=== PATIENT | male | born 1955 | race African-American/Black ===

== ENCOUNTER 2017-09-02 15:20 | Emergency (ER) | payer OTHER ==
[2017-09-02 15:27] VITALS: BP 165/98; PULSE 96; TEMP 97.7; BMI 21.2
--- NOTE | 2017-09-02 15:29 | PDOC ---
Rapid Medical Evaluation Time Seen by Provider: 09/02/17 15:23 Medical Evaluation: Allergies Allergy/AdvReac Type Severity Reaction Status Date / Time No Known Allergies Allergy Verified 09/02/17 15:23 09/02/17 15:23 The patient presents with a chief complaint of: Neck pain that radiates to the shoulders. Has chronic pain, that got worse starting on Wednesday. Saw his PCP yesterday (09/01/16) and was given Baclofen and gabapentin and ibuprofen. Took 1200mg of ibuprofen and excedrin as well as the prescribed medicine with little relief. I have performed a brief in-person evaluation of this patient; Pertinent physical exam findings: ambulatory, in no respiratory distress. Decreased ROM of neck with flexion. TTP L trapezius. Grossly neurologically intact I have ordered the following: Nothing The patient will proceed to the ED for further evaluation.
--- NOTE | 2017-09-02 16:14 | PDOC ---
History of Present Illness - General Chief Complaint: Head/Neck problem Stated Complaint: NECK/SHOULDER PAIN Time Seen by Provider: 09/02/17 15:23 History Source: Patient Exam Limitations: No Limitations - History of Present Illness Initial Comments: 09/02/17 16:21 c/o acute recurrance of neck pain. slept wrong 2 weeks ago and had another onset of pain to same left side of neck that has progressively worsened. Denies changes in exercise, activity, feel is the same type of pain he experienced some months ago after she "sleeping the wrong way on a bed pillow". An ice fever, earache or sore throat pain, no URI symptoms. Denies any recent exercise change, trauma,. Is disabled due to chronic migraine pain. has had chronic low back pain for many years Saw Dr Payne yesterday and prescribed Baclofen, Gabapentin, and Ibuprofen. AStates unabel to sleep last PM and hopes for differnet medication. 09/02/17 16:45 09/02/17 16:52 Occurred: reports: just prior to arrival Severity: reports: moderate, severe Pain Location: reports: none, back Method of Injury: Yes: unknown Modifying Factors: improves with: None Loss of Consciousness: no loss of consciousness Associated Symptoms (Fall): denies symptoms Past History - Travel Traveled outside of the country in the last 30 days: No Close contact w/someone who was outside of country & ill: No - Past Medical History Allergies/Adverse Reactions: Allergies Allergy/AdvReac Type Severity Reaction Status Date / Time No Known Allergies Allergy Verified 09/02/17 15:23 Home Medications: Ambulatory Orders Baclofen 10 mg PO ASDIR 09/02/17 Gabapentin 100 mg PO ASDIR 09/02/17 COPD: No Other medical history: DENIES. - Surgical History Abdominal Surgery: Yes (HERNIA) Orthopedic Surgery: No - Suicide/Smoking/Psychosocial Hx Smoking Status: No Smoking History: Never smoked Have you smoked in the past 12 months: No Number of Cigarettes Smoked Daily: 0 Hx Alcohol Use: No Trauma Specific PMHX - Complaint Specific PMHX Back Injury: Yes Neck Injury: No Review of Systems - Review of Systems Able to Perform ROS?: Yes Is the patient limited Armenian proficient: Yes Constitutional: Yes: Symptoms Reported, See HPI, Loss of Appetite, Malaise. No : Fever HEENTM: Yes: See HPI. No: Symptoms Reported, Eye Pain, Nose Congestion Respiratory: Yes: See HPI. No: Symptoms reported, Cough Musculoskeletal: Yes: Symptoms Reported, See HPI, Muscle Pain, Neck Pain Integumentary: Yes: See HPI. No: Symptoms Reported, Rash Neurological: Yes: Symptoms reported, See HPI. No: Headache All Other Systems: Reviewed and Negative *Physical Exam - Vital Signs Last Vital Signs Temp Pulse Resp BP Pulse Ox 97.7 F 96 H 19 165/98 96 09/02/17 15:24 09/02/17 15:24 09/02/17 15:24 09/02/17 15:24 09/02/17 15:24 - Physical Exam General Appearance: Yes: Appropriately Dressed, Apparent Distress HEENT: positive: JAYY, Normal ENT Inspection, TMs Normal, Pharynx Normal Neck: positive: Supple, Lymphadenopathy (R), Lymphadenopathy (L). negative: Tender Respiratory/Chest: positive: Lungs Clear, Normal Breath Sounds Cardiovascular: positive: Regular Rate. negative: Regular Rhythm Gastrointestinal/Abdominal: positive: Tender, Soft Musculoskeletal: positive: Muscle Spasm (palpable spasm and reproduced tenderness along the left side of the paravertebral spinous muscles. Has no tenderness to bone, range of motion is intact however has reproduced pain to the right.). negative: Vertebral Tenderness Extremity: positive: Normal Range of Motion. negative: Tender Integumentary: positive: Normal Color, Dry, Warm, Pale Neurologic: positive: gopherman II-XII NML intact, Fully Oriented, Alert, Normal Mood/ Affect, Normal Response, Motor Strength 5/5 Progress Note - Progress Note Progress Note: If cervical strain, will treat with dose of Toradol IM, and one dose of cyclobenzaprine to help break the spasm tonight. Encouraged patient to continue regime from Dr. Robert as gabapentin takes a few days for levels to be achieved and baclofen may be a little more gentle then 1 dose cyclobenzaprine. Should follow up with him for reevaluation and possible further treatment testing. *DC/Admit/Observation/Transfer Diagnosis at time of Disposition: Cervical muscle strain Qualifiers: Encounter type: initial encounter Qualified Code(s): S16.1XXA - Strain of muscle, fascia and tendon at neck level, initial encounter - Discharge Dispostion Disposition: HOME Condition at time of disposition: Stable Admit: No - Referrals Referrals: Hussein Payne MD, [Primary Care Provider] - - Patient Instructions Printed Discharge Instructions: DI for Cervical Muscle Strain Additional Instructions: Rest, no heavy lifting or exercise until pain is resolved Hot soaks to neck and low back as often as possible/hot showers or Jacuzzis No massage or therapy until spasm is gone Continue ibuprofen 400 mg tablets every 6 hours for the next 3 days then as needed for pain and swelling- starting tomporrow AM Cyclobenzaprine 1-10mg tonight x 1 dose, then start Baclofen every 8 hours for spasm as needed Continue Gabaopentin as directed. Call and make appointment with Dr Payne tomorrow or Wednesday to review / followup. If not significant improvement within 24 hours with medication and rest regime, followup with private physician for change in medications and /or therapy. - Post Discharge Activity Forms/Work/School Notes: Back to Work
[2017-09-02] MEDS ORDERED: KETOROLAC TROMETHAMINE 60 MG/2 ML VIAL IM ONE (16:20)
[2017-09-02] MEDS ORDERED: CYCLOBENZAPRINE HCL 10 MG TABLET (FP) PO ONE (16:20)
[2017-09-02] MEDS ORDERED: KETOROLAC TROMETHAMINE 60 MG/2 ML VIAL ONE (16:23)
[2017-09-02] MEDS ORDERED: CYCLOBENZAPRINE HCL 10 MG TABLET (FP) ONE (16:25)
== END 2017-09-02 17:00 | disposition home or self-care (01) ==
LOC: JERFT 15:20
PROC: 3E0233Z Introduction of Anti-inflammatory into Muscle, Percutaneous Approach (ICD-10-PCS; principal; 2017-09-02)
DX: S16.1XXA Strain of muscle, fascia and tendon at neck level, initial encounter (principal); X50.1XXA Overexertion from prolonged static or awkward postures, initial encounter; Y93.84 Activity, sleeping; Y92.032 Bedroom in apartment as the place of occurrence of the external cause; Y99.8 Other external cause status
CPT/HCPCS: 99281-25

== ENCOUNTER 2017-09-05 10:04 | Emergency (ER) | payer OTHER ==
[2017-09-05 10:11] VITALS: BP 148/81; PULSE 98; TEMP 97.6; BMI 24.3
--- NOTE | 2017-09-05 11:14 | PDOC ---
History of Present Illness - General Chief Complaint: Pain, Acute Stated Complaint: REVISIT, PAIN Time Seen by Provider: 09/05/17 11:07 History Source: Patient Exam Limitations: No Limitations - History of Present Illness Initial Comments: 09/05/17 13:12 61-year-old male presents to the emergency department complaining of left lateral neck pain 3 days. Pain is described as 4/10 dull nonradiating intermittent discomfort. The pain is exacerbated on certain positions and touch intermittently but alleviated at rest. Patient denies any injuries/trauma. Patient denies bladder or bowel dysfunction. Patient denies back pains, chest pain, shortness of breath. Patient states he was given Neurontin and back ovarian and only started taking it yesterday. Patient awoke today without being pain free. Past History - Past Medical History Allergies/Adverse Reactions: Allergies Allergy/AdvReac Type Severity Reaction Status Date / Time No Known Allergies Allergy Verified 09/05/17 10:09 Home Medications: Ambulatory Orders Baclofen 10 mg PO BID 09/02/17 Gabapentin 100 mg PO BID 09/02/17 Ibuprofen [Motrin -] 600 mg PO TID PRN 09/05/17 COPD: No - Surgical History Abdominal Surgery: Yes (HERNIA) Orthopedic Surgery: No - Suicide/Smoking/Psychosocial Hx Smoking Status: No Smoking History: Never smoked Have you smoked in the past 12 months: No Number of Cigarettes Smoked Daily: 0 Information on smoking cessation initiated: No Hx Alcohol Use: No Drug/Substance Use Hx: No Substance Use Type: None Review of Systems - Review of Systems Able to Perform ROS?: Yes Comments:: 09/05/17 13:14 CONSTITUTIONAL: Absent: fever, chills, diaphoresis, generalized weakness, malaise, loss of appetite HEENT: Absent: rhinorrhea, nasal congestion, throat pain, throat swelling, difficulty swallowing, mouth swelling, ear pain, eye pain, visual Changes MUSCULOSKELETAL: +Left lat neck pain Absent: myalgia, arthralgia, joint swelling SKIN: Absent: rash, itching, pallor HEMATOLOGIC/IMMUNOLOGIC: Absent: easy bleeding, easy bruising, lymphadenopathy, frequent infections ENDOCRINE: Absent: unexplained weight gain, unexplained weight loss, heat intolerance, cold intolerance NEUROLOGIC: Absent: headache, focal weakness or paresthesias, dizziness, unsteady gait, seizure, mental status changes, bladder or bowel incontinence PSYCHIATRIC: Absent: anxiety, depression, suicidal or homicidal ideation, hallucinations. Is the patient limited Eritrean proficient: No *Physical Exam - Vital Signs Last Vital Signs Temp Pulse Resp BP Pulse Ox 97.6 F 98 H 18 148/81 100 09/05/17 10:09 09/05/17 10:09 09/05/17 10:09 09/05/17 10:09 09/05/17 10:09 - Physical Exam Comments: 09/05/17 13:14 GENERAL: Well developed, well nourished. Awake and alert. No acute distress. HEENT: Normocephalic, atraumatic. PERRLA, EOMI. No conjunctival pallor. Sclera are non- icteric. Moist mucous membranes. Oropharynx is clear. NECK: Supple. Full ROM. No JVD. Carotid pulses 2+ and symmetric, without bruits. No thyromegaly. No lymphadenopathy. CARDIOVASCULAR: Regular rate and rhythm. No murmurs, rubs, or gallops. Distal pulses are 2+ and symmetric. PULMONARY: No evidence of respiratory distress. Lungs clear to auscultation bilaterally. No wheezing, rales or rhonchi. ABDOMINAL: Soft. Non-tender. Non-distended. No rebound or guarding. No organomegaly. Normoactive bowel sounds. MUSCULOSKELETAL Normal range of motion at all joints. No bony deformities or tenderness. No CVA tenderness. EXTREMITIES: No cyanosis. No clubbing. No edema. No calf tenderness. SKIN: Warm and dry. Normal capillary refill. No rashes. No jaundice. NEUROLOGICAL: Alert, awake, appropriate. Cranial nerves 2-12 intact. No deficits to light touch and temperature in face, upper extremities and lower extremities. No motor deficits in the in face, upper extremities and lower extremities. Normoreflexic in the upper and lower extremities. Normal speech. Toes are down- going bilaterally. Gait is normal without ataxia. *DC/Admit/Observation/Transfer Diagnosis at time of Disposition: Neck muscle strain Qualifiers: Encounter type: initial encounter Qualified Code(s): S16.1XXA - Strain of muscle, fascia and tendon at neck level, initial encounter - Discharge Dispostion Disposition: HOME Condition at time of disposition: Stable Admit: No - Referrals Referrals: Hussein Payne MD, MD [Primary Care Provider] - Mirza Flowers MD [Staff Physician] - - Patient Instructions Printed Discharge Instructions: Whiplash, DI for Neck Pain Additional Instructions: Follow-up with the neurologist this week preferably tomorrow Tylenol alternating with Motrin as needed for pain Return back to the ER for severe/persistent/worsening or concerning symptoms - Post Discharge Activity
== END 2017-09-05 11:15 | disposition home or self-care (01) ==
LOC: JERFT 10:04
DX: S16.1XXA Strain of muscle, fascia and tendon at neck level, initial encounter (principal); X58.XXXA Exposure to other specified factors, initial encounter; Y93.89 Activity, other specified; Y92.89 Other specified places as the place of occurrence of the external cause; Y99.8 Other external cause status
CPT/HCPCS: 99281-25

== ENCOUNTER 2017-10-27 20:09 | Emergency (ER) | payer OTHER ==
--- NOTE | 2017-10-27 20:17 | PDOC ---
Rapid Medical Evaluation Chief Complaint: Pain Time Seen by Provider: 10/27/17 20:14 Medical Evaluation: Allergies Allergy/AdvReac Type Severity Reaction Status Date / Time No Known Allergies Allergy Verified 09/05/17 10:09 10/27/17 20:16 c/o numbness to left thumb AND FINGER TIPS. denies numbness to the left arm, chest pain, weakness. PE; patient alert ox3 A: numbness P: patient to the ER for further management of care.
[2017-10-27 20:18] VITALS: BP 133/90; PULSE 87; TEMP 98.2; BMI 21.2
--- NOTE | 2017-10-27 21:00 | PDOC ---
History of Present Illness - General Chief Complaint: Pain Stated Complaint: left thumb numbness Time Seen by Provider: 10/27/17 20:14 - History of Present Illness Initial Comments: 62-year-old male with no significant past medical history presents for evaluation of decreased sensation in the left hand. His problems started about an hour ago. No prior problems like this in the past. 10/27/17 20:54 Past History - Past Medical History Allergies/Adverse Reactions: Allergies Allergy/AdvReac Type Severity Reaction Status Date / Time No Known Allergies Allergy Verified 10/27/17 20:17 Home Medications: Ambulatory Orders NK [No Known Home Medication] 10/27/17 COPD: No - Surgical History Abdominal Surgery: Yes (HERNIA) Orthopedic Surgery: No - Suicide/Smoking/Psychosocial Hx Smoking Status: No Smoking History: Never smoked Have you smoked in the past 12 months: No Number of Cigarettes Smoked Daily: 0 Information on smoking cessation initiated: No Hx Alcohol Use: No Drug/Substance Use Hx: No Substance Use Type: None Review of Systems - Review of Systems Neurological: Yes: Numbness All Other Systems: Reviewed and Negative *Physical Exam - Vital Signs Last Vital Signs Temp Pulse Resp BP Pulse Ox 98.2 F 87 16 133/90 100 10/27/17 20:16 10/27/17 20:16 10/27/17 20:16 10/27/17 20:16 10/27/17 20:16 - Physical Exam Comments: Is full range of motion of both wrists and elbows. He has 5 out of 5 strength in bilateral upper extremities negative Bette sign at the elbows negative Phalen sign at the wrist negative median nerve compression. He has decreased sensation at the fingertips of his left hand. Negative Spurling maneuver at the neck. The remainder of the left upper extremity is neurovascularly intact without any gross sensorimotor deficits. 10/27/17 20:55 Medical Decision Making - Medical Decision Making I don't believe there is anything acute going on. He is intact with some mildly decreased sensation at the left fingertips. I will have her follow up with hand surgery for further evaluation and treatment this may be early carpal tunnel I don't believe this is a CVA, cubital tunnel syndrome or cervical radiculopathy 10/27/17 20:58 *DC/Admit/Observation/Transfer Diagnosis at time of Disposition: Numbness and tingling - Discharge Dispostion Disposition: HOME Condition at time of disposition: Stable Decision to Admit order: No - Referrals Referrals: Hussein Payne MD, MD [Primary Care Provider] - Micheal Hudson MD [Staff Physician] - - Patient Instructions Printed Discharge Instructions: DI for Numbness/tingling Additional Instructions: Return to the emergency room if your symptoms worsen or go unresolved. It's important few to follow-up with a hand surgeon. Within the next to1- 2 days. - Post Discharge Activity
== END 2017-10-27 21:06 | disposition home or self-care (01) ==
LOC: JERFT 20:09
DX: R20.0 Anesthesia of skin (principal); R20.2 Paresthesia of skin
CPT/HCPCS: 99281-25

== ENCOUNTER 2018-09-15 04:09 | Emergency (ER) | payer OTHER ==
[2018-09-15 04:59] VITALS: BMI 19.8
--- NOTE | 2018-09-15 05:53 | PDOC ---
History of Present Illness - General Chief Complaint: Chest Pain Stated Complaint: CHEST PAIN Time Seen by Provider: 09/15/18 05:33 - History of Present Illness Initial Comments: 09/15/18 05:50 Mr. Garcia is a 62 yo male w/ no significant pmh who presents for evaluation of 2 day history of dyspnea on exertion with additional 1 day history of chest pain. Patient reports he began to become more short of breath than usual 2 days ago when walking up stairs or to his car whereas this typically does not happen to him. He reports he woke up yesterday morning with chest pain that he at first thought nothing of, however became concerned about when he started to look up his symptoms on the internet last night. Describes the pain as left sided, non-radiating, and non-pleuritic. Denies any other symptoms at this time. The patient denies headache and dizziness. Denies fever, chills, nausea, vomit, diarrhea and constipation. Denies dysuria, frequency, urgency and hematuria. Past History - Past Medical History Allergies/Adverse Reactions: Allergies Allergy/AdvReac Type Severity Reaction Status Date / Time No Known Allergies Allergy Verified 10/27/17 20:17 Home Medications: Ambulatory Orders NK [No Known Home Medication] 09/15/18 COPD: No DVT: No - Surgical History Abdominal Surgery: Yes (HERNIA) Orthopedic Surgery: No - Immunization History Immunization Up to Date: Yes - Suicide/Smoking/Psychosocial Hx Smoking Status: No Smoking History: Never smoked Have you smoked in the past 12 months: No Number of Cigarettes Smoked Daily: 0 Hx Alcohol Use: Yes (socialization) Drug/Substance Use Hx: No Substance Use Type: None Review of Systems - Review of Systems Comments:: 09/15/18 05:53 GENERAL/CONSTITUTIONAL: No fever or chills. No weakness. HEAD, EYES, EARS, NOSE AND THROAT: No change in vision. No ear pain or discharge. No sore throat. CARDIOVASCULAR: +Dyspnea on exertion and chest pain as described. RESPIRATORY: No cough, wheezing, or hemoptysis. GASTROINTESTINAL: No nausea, vomiting, diarrhea or constipation. GENITOURINARY: No dysuria, frequency, or change in urination. MUSCULOSKELETAL: No joint or muscle swelling or pain. No neck or back pain. SKIN: No rash NEUROLOGIC: No headache, vertigo, loss of consciousness, or change in strength/ sensation. ENDOCRINE: No increased thirst. No abnormal weight change HEMATOLOGIC/LYMPHATIC: No anemia, easy bleeding, or history of blood clots. ALLERGIC/IMMUNOLOGIC: No hives or skin allergy. *Physical Exam - Vital Signs Last Vital Signs Temp Pulse Resp BP Pulse Ox 97.9 F 78 19 148/95 100 09/15/18 04:44 09/15/18 04:44 09/15/18 04:44 09/15/18 04:44 09/15/18 04:44 - Physical Exam Comments: 09/15/18 05:53 GENERAL: Awake, alert, and fully oriented, in no acute distress HEAD: No signs of trauma, normocephalic, atraumatic EYES: PERRLA, EOMI, sclera anicteric, conjunctiva clear ENT: Auricles normal inspection, hearing grossly normal, nares patent, oropharynx clear without exudates. Moist mucosa NECK: Normal ROM, supple, no lymphadenopathy, JVD, or masses LUNGS: No distress, speaks full sentences, clear to auscultation bilaterally HEART: Regular rate and rhythm, normal S1 and S2, no murmurs, rubs or gallops, peripheral pulses normal and equal bilaterally. ABDOMEN: Soft, nontender, normoactive bowel sounds. No guarding, no rebound. No masses EXTREMITIES: Normal inspection, Normal range of motion, no edema. No clubbing or cyanosis. NEUROLOGICAL: Cranial nerves II through XII grossly intact. Normal speech, normal gait, no focal sensorimotor deficits SKIN: Warm, Dry, normal turgor, no rashes or lesions noted. ED Treatment Course - LABORATORY CBC & Chemistry Diagram: 09/15/18 06:19 09/15/18 06:19 Medical Decision Making - Medical Decision Making 09/15/18 05:53 Mr. Garcia is a 62 yo male w/ pmh as described who presents for evaluation of symptoms concerning for ACS vs. Pulmonary process. Will evaluate patient with cardiac labs plus EKG and CXR. 09/15/18 06:38 EKG normal sinus rhythm. Patient pending laboratory evaluation and CXR. 09/15/18 06:50 Patient signed out to Dr. Joiner for further evaluation. *DC/Admit/Observation/Transfer Diagnosis at time of Disposition: Dyspnea on exertion Chest pain Qualifiers: Chest pain type: unspecified Qualified Code(s): R07.9 - Chest pain, unspecified - Referrals Referrals: Hussein Payne MD, [Primary Care Provider] - - Patient Instructions - Post Discharge Activity
[2018-09-15 06:29] LABS: BASO % 0.9 % (0-2.0); EOS % 1.4 % (0-4.5); HEMATOCRIT 38.1 % (35.4-49); MCH 31.7 pg (25.7-33.7); MEAN CELL VOLUME 93.1 fl (80-96); MEAN PLT VOLUME 8.9 fl (7.5-11.1); MONO % 9.6 % (3.8-10.2); NEUT % 62.1 % (42.8-82.8); PLATELET COUNT 232 K/MM3 (134-434); RBC 4.09 M/mm3 (4.00-5.60); RDW 13.1 % (11.9-15.9); WHITE BLOOD COUNT 6.1 K/mm3 (4.0-10.0)
[2018-09-15 06:53] VITALS: TEMP 98.2
[2018-09-15] MEDS ORDERED: ASPIRIN 81 MG CHEWABLE TABLETS PO ONE (06:54)
[2018-09-15] MEDS ORDERED: ASPIRIN 81 MG CHEWABLE TABLETS ONE (06:56)
[2018-09-15 07:19] LABS: ALBUMIN 3.4 g/dl (3.4-5.0); ALK PHOS 60 U/L (45-117); ANION GAP 3 MMOL/L (8-16); BILIRUBIN,TOTAL 0.6 mg/dL (0.2-1); BLOOD UREA NITROGEN 12 mg/dL (7-18); CALCIUM 8.7 mg/dL (8.5-10.1); CHLORIDE 103 mmol/L (98-107); CO2 29 mmol/L (21-32); CREATININE 1.1 mg/dL (0.55-1.3); GLUCOSE,RANDOM 86 mg/dL (74-106); N-TERMINAL BNP 474.7 pg/ml (5-125); POTASSIUM 4.7 mmol/L (3.5-5.1); SGOT/AST 18 U/L (15-37); SGPT/ALT 17 U/L (13-61); SODIUM 135 mmol/L (136-145); TOT PROT 7.1 g/dl (6.4-8.2)
--- NOTE | 2018-09-15 08:15 | PDOC ---
Attending Attestation - Resident Resident Name: Melchor Akhtar - ED Attending Attestation I have performed the following: I have examined & evaluated the patient, The case was reviewed & discussed with the resident, I agree w/resident's findings & plan, Exceptions are as noted - HPI HPI: 09/15/18 08:12 62 yo male no pmhx here with c/o chest pain exertional sob. no f/c no cough .no leg swelling. no mod factors. did not take anyting for pain. no f/c no abd pain. no h/o tobacco use, no other complaints. has had pain x 3 days. - Physicial Exam PE: 09/15/18 08:12 awake alert lungs clear bilaterally heart rrr no mrg abd soft nt ext wwp no edema. no calf tenderness. - Medical Decision Making 09/15/18 08:14 62 yo male here with cp sob. differential anemia, acs, infection chf, plan ekg trop cxr aspirin given, will likely require tele obs r/o acs. no prior cardiac workup. signed out to oncoming physician pending labs, will require adission/ obs r/o acs.
--- NOTE | 2018-09-15 10:30 | PDOC ---
*Physical Exam - Vital Signs Last Vital Signs Temp Pulse Resp BP Pulse Ox 98.2 F 64 15 105/62 95 09/15/18 06:30 09/15/18 06:30 09/15/18 06:30 09/15/18 06:30 09/15/18 06:30 ED Treatment Course - LABORATORY CBC & Chemistry Diagram: 09/15/18 06:19 09/15/18 06:19 - ADDITIONAL ORDERS Additional order review: Laboratory Results 09/15/18 09/15/18 09:20 06:19 Sodium 135 L Potassium 4.7 Chloride 103 Carbon Dioxide 29 Anion Gap 3 L BUN 12 Creatinine 1.1 Creat Clearance w eGFR 67.83 Random Glucose 86 Calcium 8.7 Total Bilirubin 0.6 AST 18 ALT 17 Alkaline Phosphatase 60 Creatine Kinase 116 Troponin I 0.03 0.04 B-Natriuretic Peptide 474.7 H Total Protein 7.1 Albumin 3.4 09/15/18 06:19 RBC 4.09 MCV 93.1 MCHC 34.0 RDW 13.1 MPV 8.9 Neutrophils % 62.1 Lymphocytes % 26.0 Monocytes % 9.6 Eosinophils % 1.4 Basophils % 0.9 - Medications Given in the ED: ED Medications Discontinued Medications Generic Name Dose Route Start Last Admin Trade Name Freq PRN Reason Stop Dose Admin Aspirin 324 mg 09/15/18 06:54 09/15/18 06:57 Asa - PO 09/15/18 06:55 324 mg ONCE ONE Administration Medical Decision Making - Medical Decision Making Patient signed out by Dr. Akhtar 62yo M with no significant PMH presenting with chest pain and MANNING x 1 day. Family history of early strokes. No prior cardiac history. Received ASA. BNP mildly elevated at 475. First Tpn=0.04. Recommended admission, however patient says he cannot stay in the hospital because he has already made plans that he cannot change. As patient is unwilling to stay for admission, discussed that he would be subject to risks such as cardiac arrest, myocardial infarct, and respiratory failure and he would have to sign out AMA. He agreed to stay for second troponin. Second Tpn 0.03 Recommended admission, however, patient verbally acknowledged risks of leaving and signed the AMA form. 09/15/18 10:30 *DC/Admit/Observation/Transfer Diagnosis at time of Disposition: Dyspnea on exertion Chest pain Qualifiers: Chest pain type: unspecified Qualified Code(s): R07.9 - Chest pain, unspecified - Discharge Dispostion Disposition: AGAINST MEDICAL ADVICE Condition at time of disposition: Guarded - Referrals Referrals: Hussein Payne MD, MD [Primary Care Provider] - New Barnes MD [Staff Physician] - - Patient Instructions Printed Discharge Instructions: DI for Chest Pain Additional Instructions: You were seen in the emergency department for chest pain. We recommended admission and you decided to leave against medical advice (AMA). Follow-up with your primary care doctor tomorrow to discuss this ED visit and to further evaluate your chest pain. Call and make an appointment. We have referred you to a proj engineer. Call and make an appointment. Call for emergency medicine services or go to the emergency room right away if you have symptoms of a heart attack, including: Chest pain, which may feel like a crushing weight A sense of fullness, squeezing, or pressure in the chest Rapid, irregular heartbeat Pain, tingling or numbness in the left shoulder and arm, the neck or jaw, or the right arm Sweating Nausea or vomiting Lightheadedness, weakness, or fainting Shortness of breath If you think you have an emergency, call for medical help right away. - Post Discharge Activity
[2018-09-15 10:55] VITALS: BP 136/103; PULSE 82
--- NOTE | 2018-09-15 16:35 | EKG ---
Test Reason : Blood Pressure : / mmHG Vent. Rate : 069 BPM Atrial Rate : 069 BPM P-R Int : 156 ms QRS Dur : 096 ms QT Int : 414 ms P-R-T Axes : 050 049 -01 degrees QTc Int : 443 ms NORMAL SINUS RHYTHM NONSPECIFIC T WAVE ABNORMALITY ABNORMAL ECG NO PREVIOUS ECGS AVAILABLE Confirmed by GRETA ALBERT, GALINDO ([id number]) on 09/15/2018 4:35:36 PM Referred By: Confirmed By:GALINDO HERNANDES MD
== END 2018-09-15 10:55 | disposition left against medical advice (07) ==
LOC: JER 04:09
DX: R06.00 Dyspnea, unspecified (principal); R07.9 Chest pain, unspecified
CPT/HCPCS: 36415; 71046-TC-FY; 80053; 82550; 83880; 84484; 85025; 93005; 93010; 99284-25

== ENCOUNTER 2020-06-24 19:48 | Emergency (ER) | payer OTHER ==
[2020-06-24 19:55] VITALS: BP 143/89; PULSE 95; TEMP 96.6; BMI 19.8
[2020-06-24 22:15] LABS: PH,URINE 5.5 (5.0-8.0); URINE APPEARANCE CLEAR; URINE BILIRUBIN NEGATIVE (NEGATIVE); URINE COLOR YELLOW; URINE GLUCOSE (UA) NEGATIVE (NEGATIVE); URINE KETONE TRACE (NEGATIVE); URINE LEUK ESTERASE NEGATIVE (NEGATIVE); URINE NITRITE NEGATIVE (NEGATIVE); URINE PROTEIN TRACE (NEGATIVE)
== END 2020-06-25 00:11 | disposition home or self-care (01) ==
LOC: JER 19:48
DX: K59.00 Constipation, unspecified (principal); R51.9 Headache, unspecified
CPT/HCPCS: 70450-TC; 74019-TC-FY; 81003; 87086; 99284-25

== ENCOUNTER 2020-10-24 14:57 | Emergency (ER) | payer MEDICARE, OTHER ==
[2020-10-24 15:02] VITALS: BP 101/71; PULSE 94; TEMP 98.5; BMI 20.5
[2020-10-24 16:14] LABS: BASO % 0.3 % (0-2.0); EOS % 1.4 % (0-4.5); HEMATOCRIT 38.9 % (35.4-49); HEMOGLOBIN 13.1 GM/dL (11.7-16.9); LYMPH % 15.9 % (8-40); MCH 31.1 pg (25.7-33.7); MCHC 33.6 g/dl (32.0-35.9); MEAN CELL VOLUME 92.6 fl (80-96); MEAN PLT VOLUME 9.1 fl (7.5-11.1); MONO % 10.2 % (3.8-10.2); NEUT % 72.2 % (42.8-82.8); PLATELET COUNT 279 K/MM3 (134-434); RDW 13.7 % (11.9-15.9); WHITE BLOOD COUNT 5.7 K/mm3 (4.0-10.0)
[2020-10-24 16:21] LABS: INR 1.13 (0.83-1.09); PROTHROMBIN TIME (PATIENT) 13.8 SEC (9.7-13.0)
[2020-10-24 17:27] LABS: ALBUMIN 3.7 g/dl (3.4-5.0); BLOOD UREA NITROGEN 15.5 mg/dL (7-18); CALCIUM 8.8 mg/dL (8.5-10.1)
[2020-10-24 17:31] LABS: CREATININE 1.3 mg/dL (0.55-1.3)
[2020-10-24 17:32] LABS: BILIRUBIN,TOTAL 0.6 mg/dL (0.2-1); TOT PROT 7.6 g/dl (6.4-8.2)
== END 2020-10-24 18:15 | disposition home or self-care (01) ==
LOC: JER 14:57
DX: R07.9 Chest pain, unspecified (principal)
CPT/HCPCS: 36415; 71045-TC-FY; 80053; 82550; 82553; 84484; 85025; 85610; 93005; 93010; 99284-25

== ENCOUNTER 2022-02-02 11:38 | Inpatient (IN) | payer OTHER ==
[2022-02-02 16:27] LABS: BASO % 0.6 % (0-2.0); EOS % 2.2 % (0-4.5); HEMATOCRIT 41.5 % (35.4-49); HEMOGLOBIN 13.6 GM/dL (11.7-16.9); LYMPH % 26.4 % (8-40); MCH 30.3 pg (25.7-33.7); MCHC 32.8 g/dl (32.0-35.9); MEAN CELL VOLUME 92.3 fl (80-96); MEAN PLT VOLUME 9.7 fl (7.5-11.1); MONO % 10.4 % (3.8-10.2); NEUT % 60.4 % (42.8-82.8); PLATELET COUNT 288 10^3/uL (134-434); RBC 4.49 M/mm3 (4.00-5.60); RDW 13.1 % (11.9-15.9); WHITE BLOOD COUNT 6.3 K/mm3 (4.0-10.0)
[2022-02-02 16:43] LABS: CHLORIDE 106 mmol/L (98-107); SODIUM 138 mmol/L (136-145)
[2022-02-02 16:47] LABS: CALCIUM 9.1 mg/dL (8.5-10.1)
[2022-02-02 16:48] LABS: ALBUMIN 3.5 g/dl (3.4-5.0); ANION GAP 4 MMOL/L (8-16); BLOOD UREA NITROGEN 11.6 mg/dL (7-18); CO2 28 mmol/L (21-32); GLUCOSE,RANDOM 78 mg/dL (74-106); LIPASE 132 U/L (73-393)
[2022-02-02 16:51] LABS: BILIRUBIN,TOTAL 0.6 mg/dL (0.2-1); SGOT/AST 25 U/L (15-37); SGPT/ALT 17 U/L (13-61)
[2022-02-02 16:56] LABS: ALK PHOS 78 U/L (45-117)
[2022-02-02] MEDS ORDERED: ASPIRIN 81 MG CHEWABLE TABLETS PO ONE (17:09)
[2022-02-02] MEDS ORDERED: ASPIRIN 81 MG CHEWABLE TABLETS ONE (17:43)
[2022-02-02] MEDS ORDERED: ATORVASTATIN CA 40 MG TABLET (FP) PO ONE (20:38)
[2022-02-02] MEDS ORDERED: ATORVASTATIN CA 40 MG TABLET (FP) ONE (20:41)
[2022-02-02] MEDS ORDERED: ATORVASTATIN CA 20 MG TABLET (FP) ONE (20:41)
[2022-02-02] MEDS ORDERED: ACETAMINOPHEN 325 MG TABLET (FP) ONE (20:46)
[2022-02-02] MEDS ORDERED: METOPROLOL TARTRATE 25 MG TABLET (FP) PO ONE (21:28)
[2022-02-02] MEDS ORDERED: ACETAMINOPHEN 650 MG/20.3 ML ORAL SOLUTION (CUPS) PO ONE (21:43)
[2022-02-02] MEDS ORDERED: HEPARIN NA (PORCINE) 5,000 UNITS/ML 1ML VIAL ONE (22:02)
[2022-02-02] MEDS ORDERED: METOPROLOL TARTRATE 25 MG TABLET (FP) ONE (22:02)
[2022-02-02] MEDS: HEPARIN NA (PORCINE) 5,000 UNITS/ML 1ML VIAL SQ SCH (22:10)
[2022-02-02] MEDS ORDERED: ONDANSETRON *ODT* 4 MG TABLET ONE (22:11)
[2022-02-02] MEDS ORDERED: ONDANSETRON *ODT* 4 MG TABLET SL ONE (22:15)
[2022-02-02 23:41] VITALS: BMI 20.1
[2022-02-03] MEDS ORDERED: ACETAMINOPHEN 325 MG TABLET (FP) PO PRN (04:00)
[2022-02-03 07:44] LABS: BASO % 0.4 % (0-2.0); EOS % 3.5 % (0-4.5); HEMOGLOBIN 12.6 GM/dL (11.7-16.9); LYMPH % 36.3 % (8-40); MCH 30.7 pg (25.7-33.7); MCHC 33.2 g/dl (32.0-35.9); MEAN CELL VOLUME 92.3 fl (80-96); MEAN PLT VOLUME 9.3 fl (7.5-11.1); NEUT % 48.8 % (42.8-82.8); PLATELET COUNT 262 10^3/uL (134-434); RBC 4.11 M/mm3 (4.00-5.60); WHITE BLOOD COUNT 5.4 K/mm3 (4.0-10.0)
[2022-02-03 07:59] LABS: CHLORIDE 105 mmol/L (98-107); SODIUM 139 mmol/L (136-145)
[2022-02-03 08:05] LABS: ALBUMIN 2.9 g/dl (3.4-5.0); ANION GAP 5 MMOL/L (8-16); BLOOD UREA NITROGEN 12.9 mg/dL (7-18); CALCIUM 8.6 mg/dL (8.5-10.1); CO2 29 mmol/L (21-32); GLUCOSE,RANDOM 110 mg/dL (74-106); MAGNESIUM 1.9 mg/dL (1.8-2.4)
[2022-02-03 08:08] LABS: SGOT/AST 38 U/L (15-37)
[2022-02-03 08:09] LABS: ALK PHOS 70 U/L (45-117); BILIRUBIN,TOTAL 0.3 mg/dL (0.2-1); CHOLESTEROL 166 mg/dL (50-200); CREATININE 1.1 mg/dL (0.55-1.3); HDL CHOLESTEROL 37 mg/dL (40-60); LDL CHOLESTEROL (ONLY SJRH) 103 mg/dL (5-100); SGPT/ALT 20 U/L (13-61); TRIGLYCERIDES 175 mg/dL (0-150)
[2022-02-03] MEDS: HEPARIN NA (PORCINE) 5,000 UNITS/ML 1ML VIAL SQ SCH ×2 (09:35→21:19)
[2022-02-03] MEDS: ASPIRIN 81 MG CHEWABLE TABLETS PO SCH (09:36)
[2022-02-03] MEDS: VALSARTAN 40 MG TABLET PO SCH (09:36)
[2022-02-03] MEDS: CLOPIDOGREL BISULFATE 75 MG TABLET (FP) PO SCH (09:36)
[2022-02-03] MEDS ORDERED: METOPROLOL TARTRATE 25 MG TABLET (FP) PO SCH (10:00)
[2022-02-03] MEDS ORDERED: DEXTROSE 50%-WATER 25 GM/50 ML DISP.SYRIN ONE ×2 (17:45→18:41)
[2022-02-03] MEDS ORDERED: ATORVASTATIN CA 40 MG TABLET (FP) PO SCH ×2 (22:00)
[2022-02-04 08:45] VITALS: BP 110/57; PULSE 61; RESP 18; TEMP 97.8
[2022-02-04] MEDS: ASPIRIN 81 MG CHEWABLE TABLETS PO SCH (09:11)
[2022-02-04] MEDS: VALSARTAN 40 MG TABLET PO SCH (09:12)
[2022-02-04] MEDS: HEPARIN NA (PORCINE) 5,000 UNITS/ML 1ML VIAL SQ SCH (09:12)
[2022-02-04] MEDS: CLOPIDOGREL BISULFATE 75 MG TABLET (FP) PO SCH (09:12)
[2022-02-04] MEDS ORDERED: DEXTROSE 50%-WATER 25 GM/50 ML DISP.SYRIN ONE (11:16)
== END 2022-02-04 12:22 | disposition short-term general hospital (02) | DRG 281 ==
LOC: JER 11:38 → JERBED 17:42 → J4S 23:24
PROVIDERS: ADMIT Internal Medicine; ATTEND Family Medicine
DX: I21.4 Non-ST elevation (NSTEMI) myocardial infarction (principal); G45.9 Transient cerebral ischemic attack, unspecified; R20.0 Anesthesia of skin; R07.89 Other chest pain
CPT/HCPCS: 36415; 70450-TC; 70551-TC; 71046-TC-FY; 80053; 80061; 83036; 83690; 83735; 84443; 84484; 85025; 93005; 93010; 93306-TC; 93880-TC; 99285-25; C9803-CS; J1644; Q0162; U0003; U0005

== ENCOUNTER 2022-08-08 09:58 | Inpatient (IN) | payer OTHER ==
[2022-08-08 11:24] LABS: INR 1.17 (0.83-1.09); PROTHROMBIN TIME (PATIENT) 13.6 SEC (9.7-13.0)
[2022-08-08 11:27] LABS: ACTIVATED PTT 35.8 SECONDS (25.2-36.5)
[2022-08-08 11:33] LABS: BASO % 0.6 % (0-2.0); EOS % 2.3 % (0-4.5); HEMATOCRIT 38.5 % (35.4-49); HEMOGLOBIN 12.4 GM/dL (11.7-16.9); LYMPH % 25.6 % (8-40); MCH 29.4 pg (25.7-33.7); MCHC 32.2 g/dl (32.0-35.9); MEAN CELL VOLUME 91.3 fl (80-96); MEAN PLT VOLUME 9.8 fl (7.5-11.1); MONO % 11.7 % (3.8-10.2); NEUT % 59.8 % (42.8-82.8); PLATELET COUNT 275 10^3/uL (134-434); RBC 4.22 M/mm3 (4.00-5.60); RDW 13.8 % (11.9-15.9); WHITE BLOOD COUNT 5.2 K/mm3 (4.0-10.0)
[2022-08-08 11:40] LABS: ALBUMIN 3.5 g/dl (3.4-5.0); BLOOD UREA NITROGEN 16.4 mg/dL (7-18); CHLORIDE 110 mmol/L (98-107); CO2 27 mmol/L (21-32); GLUCOSE,RANDOM 80 mg/dL (74-106); SODIUM 141 mmol/L (136-145)
[2022-08-08 11:43] LABS: CREATININE 1.1 mg/dL (0.55-1.3); SGOT/AST 39 U/L (15-37); SGPT/ALT 56 U/L (13-61)
[2022-08-08 11:44] LABS: BILIRUBIN,TOTAL 0.8 mg/dL (0.2-1)
[2022-08-08 11:45] LABS: TOT PROT 6.8 g/dl (6.4-8.2)
[2022-08-08 11:46] LABS: ALK PHOS 74 U/L (45-117)
[2022-08-08 11:48] LABS: ANION GAP 5 MMOL/L (8-16); N-TERMINAL BNP 2580.8 pg/ml (5-125)
[2022-08-08] MEDS ORDERED: FUROSEMIDE 40 MG/4 ML INJECTABLE VIAL IVPUSH ONE ×2 (13:46→19:00)
[2022-08-08] MEDS ORDERED: FUROSEMIDE 40 MG/4 ML INJECTABLE VIAL ONE ×2 (14:16→16:57)
[2022-08-08 23:20] VITALS: BMI 18.6
[2022-08-09] MEDS: ASPIRIN 81 MG CHEWABLE TABLETS PO SCH (09:43)
[2022-08-09] MEDS: CLOPIDOGREL BISULFATE 75 MG TABLET (FP) PO SCH (09:44)
[2022-08-09] MEDS: ATORVASTATIN CA 80 MG TABLET (FP) PO SCH (09:44)
[2022-08-09] MEDS: FUROSEMIDE 40 MG/4 ML INJECTABLE VIAL IVPUSH SCH (09:44)
[2022-08-09] MEDS ORDERED: metoPROLOL SUCCINATE 25 MG TAB.SR.24H (FP) PO SCH (10:00)
[2022-08-09] MEDS: SACUBITRIL/VALSARTAN 24 MG-26 MG TABLET PO SCH ×2 (10:56→22:04)
[2022-08-09] MEDS ORDERED: ACETAMINOPHEN 325 MG TABLET (FP) PO ONE (15:45)
[2022-08-10 08:09] LABS: BASO % 0.3 % (0-2.0); EOS % 1.8 % (0-4.5); HEMOGLOBIN 14.3 GM/dL (11.7-16.9); LYMPH % 19.5 % (8-40); MCH 29.5 pg (25.7-33.7); MCHC 32.6 g/dl (32.0-35.9); MEAN CELL VOLUME 90.7 fl (80-96); MEAN PLT VOLUME 9.2 fl (7.5-11.1); NEUT % 67.4 % (42.8-82.8); PLATELET COUNT 306 10^3/uL (134-434); RBC 4.85 M/mm3 (4.00-5.60); RDW 13.4 % (11.9-15.9); WHITE BLOOD COUNT 6.1 K/mm3 (4.0-10.0)
[2022-08-10 08:30] LABS: CALCIUM 8.6 mg/dL (8.5-10.1)
[2022-08-10 08:31] LABS: ALBUMIN 3.6 g/dl (3.4-5.0); BLOOD UREA NITROGEN 27.9 mg/dL (7-18)
[2022-08-10 08:34] LABS: CREATININE 1.3 mg/dL (0.55-1.3)
[2022-08-10 08:35] LABS: BILIRUBIN,TOTAL 0.6 mg/dL (0.2-1)
[2022-08-10] MEDS: ENOXAPARIN NA (PORCINE) 40 MG/0.4 ML DISP.SYRIN SQ SCH (09:56)
[2022-08-10] MEDS: CLOPIDOGREL BISULFATE 75 MG TABLET (FP) PO SCH (09:56)
[2022-08-10] MEDS: ATORVASTATIN CA 80 MG TABLET (FP) PO SCH (09:56)
[2022-08-10] MEDS: SACUBITRIL/VALSARTAN 24 MG-26 MG TABLET PO SCH ×2 (09:56→21:37)
[2022-08-10] MEDS: FUROSEMIDE 40 MG/4 ML INJECTABLE VIAL IVPUSH SCH (09:56)
[2022-08-10] MEDS: ASPIRIN 81 MG CHEWABLE TABLETS PO SCH (09:56)
[2022-08-11 08:51] VITALS: BP 96/60; PULSE 70; RESP 18; TEMP 97.8
[2022-08-11] MEDS: ENOXAPARIN NA (PORCINE) 40 MG/0.4 ML DISP.SYRIN SQ SCH (09:05)
[2022-08-11] MEDS: ATORVASTATIN CA 80 MG TABLET (FP) PO SCH (09:05)
[2022-08-11] MEDS: ASPIRIN 81 MG CHEWABLE TABLETS PO SCH (09:05)
[2022-08-11] MEDS: SACUBITRIL/VALSARTAN 24 MG-26 MG TABLET PO SCH (09:05)
[2022-08-11] MEDS: CLOPIDOGREL BISULFATE 75 MG TABLET (FP) PO SCH (09:05)
[2022-08-11] MEDS: FUROSEMIDE 40 MG/4 ML INJECTABLE VIAL IVPUSH SCH (09:05)
[2022-08-11 12:09] LABS: BLOOD UREA NITROGEN 29.6 mg/dL (7-18); CALCIUM 9.5 mg/dL (8.5-10.1); MAGNESIUM 2.1 mg/dL (1.8-2.4)
[2022-08-11 12:13] LABS: CREATININE 1.4 mg/dL (0.55-1.3)
== END 2022-08-11 13:31 | disposition home or self-care (01) | DRG 291 ==
LOC: JER 09:58 → JERBED 15:18 → J4W 22:08 → OBSVTOIN 08-10 14:40
PROVIDERS: ADMIT Internal Medicine; ATTEND Family Medicine
DX: I11.0 Hypertensive heart disease with heart failure (principal); I50.43 Acute on chronic combined systolic (congestive) and diastolic (congestive) heart failure; I24.8 Other forms of acute ischemic heart disease; E78.00 Pure hypercholesterolemia, unspecified; I42.0 Dilated cardiomyopathy; E78.5 Hyperlipidemia, unspecified
CPT/HCPCS: 0241U-QW; 36415; 71046-TC-FY; 71275-TC; 80048; 80053; 82550; 83735; 83880; 84484; 85025; 85379; 85610; 85730; 86850; 86900; 86901; 93005; 93010; 93306-TC; 99285-25; G0378; Q9967

== ENCOUNTER 2023-08-27 15:18 | Emergency (ER) | payer OTHER ==
[2023-08-27 15:28] VITALS: BP 118/79; PULSE 66; RESP 20; TEMP 97.5; BMI 19.8
[2023-08-27] MEDS ORDERED: ACETAMINOPHEN INJECTION 100 ML IVPB ONE (16:50)
[2023-08-27] MEDS: ACETAMINOPHEN 1000 MG/100 ML BAG IVPB ONE (16:55)
[2023-08-27 16:56] LABS: BASO % 0.8 % (0-2.0); EOS % 2.5 % (0-4.5); HEMATOCRIT 40.1 % (35.4-49); HEMOGLOBIN 13.4 GM/dL (11.7-16.9); LYMPH % 34.9 % (8-40); MCHC 33.5 g/dl (32.0-35.9); MEAN CELL VOLUME 92.6 fl (80-96); MEAN PLT VOLUME 8.2 fl (7.5-11.1); MONO % 9.1 % (3.8-10.2); NEUT % 52.7 % (42.8-82.8); PLATELET COUNT 257 10^3/uL (134-434); RBC 4.33 M/mm3 (4.00-5.60); RDW 13.6 % (11.9-15.9); WHITE BLOOD COUNT 5.4 K/mm3 (4.0-10.0)
[2023-08-27 17:31] LABS: POTASSIUM 4.4 mmol/L (3.5-5.1)
[2023-08-27 17:34] LABS: ALBUMIN 3.6 g/dl (3.4-5.0); BLOOD UREA NITROGEN 16.2 mg/dL (7-18); CALCIUM 10.1 mg/dL (8.5-10.1)
[2023-08-27 17:37] LABS: CREATININE 1.1 mg/dL (0.55-1.3)
[2023-08-27 17:39] LABS: BILIRUBIN,TOTAL 0.8 mg/dL (0.2-1); TOT PROT 6.8 g/dl (6.4-8.2)
== END 2023-08-27 19:04 | disposition home or self-care (01) ==
LOC: JER 15:18
DX: R10.30 Lower abdominal pain, unspecified (principal)
CPT/HCPCS: 36415; 71045-TC-FY; 74177-TC; 80053; 83690; 84484; 85025; 93005; 93010; 99285-25; J0131

== ENCOUNTER 2023-08-29 15:09 | Emergency (ER) | payer OTHER ==
[2023-08-29 15:18] VITALS: BP 100/65; PULSE 73; RESP 18; TEMP 97.9
[2023-08-29 16:30] LABS: BASO % 0.4 % (0-2.0); EOS % 1.1 % (0-4.5); HEMATOCRIT 45.4 % (35.4-49); HEMOGLOBIN 15.2 GM/dL (11.7-16.9); LYMPH % 20.7 % (8-40); MCHC 33.5 g/dl (32.0-35.9); MEAN CELL VOLUME 92.6 fl (80-96); MEAN PLT VOLUME 8.5 fl (7.5-11.1); MONO % 12.4 % (3.8-10.2); NEUT % 65.4 % (42.8-82.8); PLATELET COUNT 325 10^3/uL (134-434); RBC 4.91 M/mm3 (4.00-5.60); RDW 13.8 % (11.9-15.9); WHITE BLOOD COUNT 6.1 K/mm3 (4.0-10.0)
[2023-08-29 16:56] LABS: POTASSIUM 4.7 mmol/L (3.5-5.1)
[2023-08-29 16:58] LABS: CALCIUM 9.9 mg/dL (8.5-10.1)
[2023-08-29 16:59] LABS: ALBUMIN 3.9 g/dl (3.4-5.0); BLOOD UREA NITROGEN 11.8 mg/dL (7-18)
[2023-08-29 17:02] LABS: CREATININE 1.2 mg/dL (0.55-1.3)
[2023-08-29 17:04] LABS: BILIRUBIN,TOTAL 0.5 mg/dL (0.2-1); TOT PROT 7.3 g/dl (6.4-8.2)
[2023-08-29 17:07] LABS: PH,URINE 6.5 (5.0-8.0); URINE APPEARANCE CLEAR; URINE BILIRUBIN NEGATIVE (NEGATIVE); URINE COLOR YELLOW; URINE GLUCOSE (UA) 3+ (NEGATIVE); URINE KETONE NEGATIVE (NEGATIVE); URINE LEUK ESTERASE NEGATIVE (NEGATIVE); URINE NITRITE NEGATIVE (NEGATIVE); URINE PROTEIN NEGATIVE (NEGATIVE); URINE UROBILINOGEN 0.2 mg/dL (0.2-1.0)
[2023-08-29] MEDS ORDERED: ACETAMINOPHEN INJECTION 100 ML IVPB ONE (17:22)
[2023-08-29] MEDS: ACETAMINOPHEN 1000 MG/100 ML BAG IVPB ONE (17:26)
== END 2023-08-29 17:58 | disposition home or self-care (01) ==
LOC: JER 15:09
PROC: 3E030NZ Introduction of Analgesics, Hypnotics, Sedatives into Peripheral Vein, Open Approach (ICD-10-PCS; principal; 2023-08-29)
DX: R10.30 Lower abdominal pain, unspecified (principal); M54.50 Low back pain, unspecified
CPT/HCPCS: 36415; 80053; 81003; 85025; 87086; 96374; 99284-25; J0131